=== PATIENT | male | born 1985 | race Caucasian/White ===

== ENCOUNTER 2018-05-12 06:34 | Emergency (ER) | payer BC, MEDICAID, OTHER ==
[~2018-05-12] VITALS: Ht 162.6 cm; Wt 99.8 kg
[2018-05-12 06:34] VITALS: BP 154/57
--- NOTE | 2018-05-12 06:34 | NUR ---
PATIENT TO ER BED 12.
--- NOTE | 2018-05-12 06:45 | NUR ---
PT PRESENTS TO ED WITH C/O LEFT FLANK PAIN X 2 HOURS. PT REPORTS URINARY HESITANCY. PT DENIES ANY DYSURIA OR HEMATURIA. PT DENIES ANY MEDICAL HISTORY OR ANY ALLERGIES TO MEDICATIONS. PENDING MD GONZALEZ.
--- NOTE | 2018-05-12 07:15 | NUR ---
Pt report given to JAYLIN JONES . Transfer of care at this time.
[2018-05-12] MEDS ORDERED: NACL 0.9% 1,000 ML IV SCH (07:34)
[2018-05-12] MEDS ORDERED: KETOROLAC 30 MG/ML VIAL IVP ONE (07:35)
[2018-05-12] MEDS ORDERED: ONDANSETRON 4 MG/2 ML VIAL IVP ONE (07:35)
[2018-05-12] MEDS ORDERED: MORPHINE SULFATE 4 MG/ML SYR IVP ONE (07:35)
[2018-05-12] MEDS ORDERED: ONDANSETRON 4 MG/2 ML VIAL ONE (07:56)
[2018-05-12] MEDS ORDERED: MORPHINE SULFATE 4 MG/ML SYR ONE (07:56)
[2018-05-12] MEDS ORDERED: KETOROLAC 30 MG/ML VIAL ONE (07:57)
--- NOTE | 2018-05-12 07:58 | NUR ---
PT TO RADIOLOGY VIA WHEELCHAIR
[2018-05-12 08:50] LABS: BASOPHILS % (AUTO) 0.4 % (0.0-2.0); EOSINOPHILS % (AUTO) 0.1 % (0.0-4.0); HEMATOCRIT 43.8 % (36-52); HEMOGLOBIN 14.1 g/dL (12.0-18.0); LYMPHOCYTES % (AUTO) 8.6 % (20.5-51.1); MEAN CORPUSCULAR HEMOGLOBIN 28 pg (27-31); MEAN CORPUSCULAR HGB CONC 32 g/dL (33-37); MEAN CORPUSCULAR VOLUME 85.2 fL (80-94); MONOCYTES # (AUTO) 0.5 K/uL (0.8-1.0); MONOCYTES % (AUTO) 4.2 % (1.7-9.3); NEUTROPHILS # (AUTO) 10.1 K/uL (1.8-7.7); NEUTROPHILS % (AUTO) 86.7 % (42.2-75.2); PLATELET COUNT (AUTO) 279 K/uL (140-450); RED BLOOD CELL COUNT(AUTO) 5.14 MIL/uL (4.20-6.10); RED CELL DISTRIBUTION WIDTH 13.3 % (11.6-13.7); WHITE BLOOD COUNT (AUTO) 11.7 K/uL (4.8-10.8)
[2018-05-12 09:02] LABS: ANION GAP 8.7 (8-16); CARBON DIOXIDE 26.9 mmol/L (21-32); CREATININE 0.9 mg/dL (0.7-1.3); POTASSIUM 4.6 mmol/L (3.5-5.1)
[2018-05-12 09:09] LABS: TOTAL BILIRUBIN 0.4 mg/dL (0.0-1.0)
--- NOTE | 2018-05-12 09:09 | NUR ---
PT. RESTING COMFORTABLY IN BED, RR EVENA AND UNLABORED. STATES " I FEEL A LITTLE UNCOMFORTABLE BUT MY PAIN WENT DOWN IT IS NOW 09/21". ER MD NOTIFIED.
[2018-05-12 09:10] LABS: ALBUMIN 3.3 g/dL (3.4-5.0)
[2018-05-12 09:32] LABS: APPEARANCE,URINE CLEAR (CLEAR); BILIRUBIN,URINE NEGATIVE (NEGATIVE); COLOR,URINE YELLOW (YELLOW); LEUKOCYTE ESTERASE ,URINE NEGATIVE (NEGATIVE); NITRITE, URINE NEGATIVE (NEGATIVE); UGLUCOSE NEGATIVE (NEGATIVE)
[2018-05-12 09:45] LABS: RBC,URINE 3-10 (FEW) /HPF (0-5)
[2018-05-12 09:46] LABS: BLOOD, URINE 1+ (NEGATIVE); WBC,URINE 0-5 (RARE) /HPF (0-5)
--- NOTE | 2018-05-12 10:18 | NUR ---
PT. RESTING COMFORTABLY IN BED, RR EVEN AND UNLABOERD. VSS. WILL CONTINUE TO MONITOR. FAMILY MEMBER AT BEDSIDE.
[2018-05-12 10:24] VITALS: BP 130/76
--- NOTE | 2018-05-12 10:24 | NUR ---
Patient discharged with v/s stable. Written and verbal after care instructions given and explained. Patient alert, oriented and verbalized understanding of instructions. Ambulatory with steady gait. All questions addressed prior to discharge. ID band removed. Patient advised to follow up with PMD. Rx of NORCO 5/325, IBUPROFEN 800MG, FLOMAX, ZOFRAN ODT given. Patient educated on indication of medication including possible reaction and side effects. Opportunity to ask questions provided and answered.
== END 2018-05-12 10:24 | disposition home or self-care (01) ==
LOC: MED 06:34
DX: N20.1 Calculus of ureter (principal)
CPT/HCPCS: 36415; 74176; 80053; 81001; 85025; 96361; 96374; 96375; 99285; J1885; J2270; J2405; J7030